=== PATIENT | male | born 1945 | race Caucasian/White ===

== ENCOUNTER → 2019-12-26 18:41 | Outpatient (ROUT) | payer MEDICARE, SELFPAY ==
[2019-12-26 19:16] LABS: BUN Creatinine Ratio 23.1 (6-22); Blood Urea Nitrogen 24 mg/dL (9-20); Calcium 9.7 mg/dL (8.4-10.2); Carbon Dioxide 26 mmol/L (22-32); Chloride 101 mmol/L (98-107); Estimated Glomerular Filt Rate > 60.0 mL/min (>60); Glucose 90 mg/dL (80-110); HEMOLYSIS < 15 (0-50); Potassium 4.8 mmol/L (3.4-5.1); Sodium 135 mmol/L (137-145)
[2019-12-26 19:38] LABS: Add Manual Diff / Slide Review NO; Basophils Absolute Auto 100 /uL (0-100); Basophils Percent Auto 0.8 % (0-2); Eosinophils Absolute Auto 100 /uL (0-450); Eosinophils Percent Auto 1.3 % (2-4); Hematocrit 41.9 % (41-53); Hemoglobin 14.4 g/dL (13.5-17.5); Lymphocytes Absolute Auto 1400 /uL (1100-4500); Lymphocytes Percent Auto 23.3 % (25-40); Mean Corpuscular HGB Conc 34.2 % (30-36); Mean Corpuscular Hemoglobin 33.7 PG (26-34); Mean Corpuscular Volume 98.3 fL (80-100); Monocytes Absolute Auto 700 /uL (0-900); Monocytes Percent Auto 10.8 % (3-14); Neutrophils Absolute Auto 3900 /uL (1500-7000); Neutrophils Percent Auto 63.8 % (50-75); Platelet Count 172 X10^3/uL (150-400); Red Blood Cell Count 4.26 X10^6/uL (4.5-5.9); Red Cell Distribution Width 12.8 % (11.6-14.8); White Blood Cell Count 6.1 X10^3/uL (4.5-11.0)
== END ==
PROVIDERS: Visit Provider Internal Medicine
DX: Z01.818 Encounter for other preprocedural examination (principal)
CPT/HCPCS: 80048; 85025

== ENCOUNTER → 2020-01-17 09:08 | Outpatient (CLI) | payer MEDICARE, SELFPAY ==
[2020-01-19 02:02] LABS: COVID19 Sendout Not Detected (Not Detect)
== END ==
PROVIDERS: PCP Internal Medicine; Visit Provider Student in an Organized Health Care Education/Training Program
DX: Z11.59 Encounter for screening for other viral diseases (principal)
CPT/HCPCS: 87635

== ENCOUNTER 2020-01-20 06:13 | Day surgery (SDC) | payer MEDICARE, SELFPAY ==
[2020-01-13 11:48] VITALS: BMI 24.5
[2020-01-20] VITALS (18 sets, daily range): BP systolic 101–150; BP diastolic 46–91; PULSE 63–84; RESP 12–23; TEMP 36.1–37.5; O2SAT 91–98; BMI 23.7
--- NOTE | 2020-01-20 | DI.RAD.S_ITS ---
PROCEDURE: XR CERVICAL SPINE 2V OR 3V INDICATIONS: C4-5. C5-6, C6-7 ACDF SERGIO TECHNIQUE: Fluoroscopic images were obtained during an operative procedure and submitted for interpretation following the completion of the procedure. COMPARISON: [facility], MR, MR CERVICAL SPINE WITHOUT CONTRAST, 12/11/2019, 9:01. [facility], CR, XR CERVICAL SPINE 2 OR 3 VIEWS, 09/15/2019, 10:37. FINDINGS: These fluoroscopic images were performed for intraoperative localization. On these images, anteriorly placed fixation devices are seen at C4-C5, C5-C6, and C6-C7. Please correlate with intraoperative findings. IMPRESSION: Normal intraoperative examination. Dictated by: Binh Bella M.D. on 01/20/2020 at 9:20 Approved by: Binh Bella M.D. on 01/20/2020 at 9:22
[2020-01-20] MEDS: LACTATED RINGERS 1,000 ML 42 ML IV ×2 (07:03→09:34)
--- NOTE | 2020-01-20 07:19 | PM.PREOP ---
Pre-operative Note COVID-19 COVID-19 status: Negative Result date/Date tested (Pos, Neg/Pending): 01/17/20 Interval Note History & Physical reviewed/Exam performed by Physician: Yes Changes to H&P: No
--- NOTE | 2020-01-20 07:28 | P.OP_ITS ---
Operative Date/Time/Diagnoses Date of procedure: 01/20/20 Time of procedure: 09:31 Pre-op diagnosis: Cervical stenosis with myelopathy Post-op diagnosis: same Procedure & Clinicians Procedure: C4-5, C5-6, C6-7 ACDF with cages Iliac crest bone graft aspirate Use of microscope Same procedure as scheduled: Yes Indications: [age] year old male with intractable pain from cervical cord compression. They had failed conservative management and requested operative intervention. Risks and benefits of surgery were discussed and appropriate consents were obtained. Surgeon: Jordi Mendez Nurse Assessor: Rosangela Bauman Anesthesia Type: General Operative Notes Findings: None Closure Type: primary Specimen(s): none sent Prosthetic devices, grafts, tissues, transplants, or devices: Jorge SERGIO-C Applied: catheter Estimated Blood Loss (mL): 5 Procedure in detail: Patient was brought to the operating room and intubated on the table. A time-out was performed. Preoperative antibiotics were given. The neck was prepped and draped in the standard sterile fashion. Using a skin fold, we made a 3 cm oblique incision on the left side. We used Bovie to go through the platysma and then did a standard anterolateral blunt dissection down to the precervical fascia. Fascia was nicked and elevated up. A marker was placed and x-ray was taken for localization. We then subperiosteally elevated up the longus colli muscles. Self-retaining retractors were placed. Mereta pins were placed. We then brought in the microscope. A scalpel used to perform an annulotomy. We then used a combination of pituitaries and curettes and Kerrison to perform a complete anterior diskectomy at C6-7. We used the bur to take down the posterior osteophytes. We took down the PLL and used Kerrison to remove any posterior disc material and osteophytes. At the end we could from the nerve hook cephalad caudally and out the foramen and everything was opened. A small stab incision was made over the left anterior iliac crest. A Jamshidi needle was advanced into the pelvis and 2 mL of bone marrow was aspirated. We then used the trials. We then packed a 14 x 17 x 6 mm SERGIO-C cage with Primagen bone graft and the iliac crest harvest. The cage was placed under fluoroscopic guidance. We then placed our two locking plates. This completed the ACDF at C6-7. We then moved our retractors up to C5-6. Again a complete diskectomy was performed including taking down the posterior osteophytes and the PLL. We removed any posterior disc material. At the end of this the decompression was verified with a nerve hook and everything was open. We then used the trials. We then packed a 14 x 17 x 6 mm SERGIO-C cage with Primagen bone graft and the iliac crest harvest. The cage was placed under fluoroscopic guidance. We then placed our two locking plates. This completed the ACDF at C5-6. We then moved our retractors up to C4-5. Again a complete diskectomy was performed taking down the posterior osteophytes and the PLL. We removed the posterior disc material. At the end of this the decompression was verified with a nerve hook and everything was open. We then used the trials. We then packed another 14 x 17 x 6 mm SERGIO-C cage with Primagen bone graft and the iliac crest harvest. The cage was placed under fluoroscopic guidance. We then placed our two locking plates. This completed the ACDF at C4-5. The self-retaining retractors and Mereta pins were removed and final x-rays taken. The wound was irrigated. There was no bleeding. The carotid was beating nicely. The platysma was closed. The superficial was closed. The skin was closed. A sterile dressing was placed. They were then extubated and brought to recovery room with no complications. Complications: none Post-operative Condition: stable Disposition: PACU Plan for aftercare: Inpatient. Up with PT. Soft collar for comfort.
[2020-01-20] MEDS: CEFAZOLIN 2 GM/100 ML FROZ.PIGGY IV ×3 (07:40→23:38)
[2020-01-20] MEDS: SODIUM CHLORIDE 0.9% 1,000 ML, GENTAMICIN 80 MG IRR (08:13)
[2020-01-20] MEDS: THROMBIN (RECOMBINANT) 5,000 UNIT VIAL 5000 UNIT TOP (08:13)
[2020-01-20] MEDS: BUPIVACAINE 0.25% W/ EPI 30 ML VIAL 60 ML INJ (08:15)
--- NOTE | 2020-01-20 08:18 | SUR.OPER ---
Supine on padded OR bed, head on gel doughnut, shoulder roll placed at top of bilateral scapula, arms padded and tucked at side, legs uncrossed, safety belt at thigh, tape over blanket over lower legs .
[2020-01-20] MEDS: HYDROMORPHONE 2 MG INJ IV ×6 (10:05→10:35)
[2020-01-20] MEDS: OXYCODONE IR 5 MG TABLET PO (10:31)
[2020-01-20] MEDS: hydrOXYzine 50 MG/ML INJ 25 MG IM (10:55)
--- NOTE | 2020-01-20 11:01 | SUR.PHASEI ---
Report called to Donna.
--- NOTE | 2020-01-20 11:27 | SUR.PHASEI ---
Patient transferred to the floor with belongings bag. Report given to BRIANNA Thompson. VS stable. Dressings CDI. Drain patent. IV saline locked.
[2020-01-20] MEDS: CELECOXIB 200 MG CAPSULE 400 MG PO (12:23)
[2020-01-20] MEDS: OXYCODONE/ACETAMINOPHEN 5/325 TABLET 2 TAB PO (12:23)
[2020-01-20] MEDS: LACTATED RINGERS 1,000 ML 125 ML IV ×2 (12:25→19:18)
[2020-01-20] MEDS: HYDROMORPHONE 0.5 MG INJ IV (13:10)
[2020-01-20] MEDS: BENZOCAINE/MENTHOL 1 LOZ PKT 1 EACH PO ×2 (13:24→23:38)
--- NOTE | 2020-01-20 13:30 | PT.IIE ---
Current Diagnoses Disease of spinal cord, unspecified (01/20/20) Spinal stenosis, cervical region (01/20/20) Strain of muscle, fascia and tendon at neck level, subsequent encounter (01/20/20) Surgery Performed Operation Date: 01/20/20 07:45 Actual Procedures p C4-7 anterior cervical discectomy & fusion w/bone graft - Jordi Mendez MD Surgical History (Last Updated 01/13/20 @ 12:08 by Akiko Diehl, RN) History of vasectomy (Acute) Hx of tonsillectomy (Acute) Medical History (Last Updated 01/13/20 @ 12:08 by Akiko Diehl RN) Asthma (Acute) Diabetes (Acute) Easy bruisability (Acute) Enlarged prostate (Acute) HLD (hyperlipidemia) (Acute) Melanoma (Acute ~2016) Numbness and tingling (Acute) Spinal stenosis, cervical region (Acute) Physical Therapy Inpatient Evaluation/Re-Eval M1 PT/OT-IP Prior Functional Status Start: 01/20/20 15:02 Freq: NEEDED Status: Active Protocol: Document 01/20/20 13:30 AB (Rec: 01/20/20 15:11 AB [email or web address]) Medical Review Prior Functional Status Medical History Reviewed Yes Communication able to make needs known Mobility and Gait pt stated that he is independent with all mobilities and ambulation without AD Social History Household Members spouse Living Arrangements House Number of Floors (Floors) One Floor Number of Stairs To Enter/Railing? no steps to enter Home Environment Standard Height Toilet,Walk in Shower Home Equipment Straight Cane Employment Status Retired M2 PT-IP Current Condition Start: 01/20/20 15:02 Freq: NEEDED Status: Active Protocol: Document 01/20/20 13:30 AB (Rec: 01/20/20 15:11 AB [email or web address]) Physical Therapy Current Condition Current Condition Evaluation Date 01/20/20 Treatment Diagnosis s/p C4-5,5-6,6-7 ACDF; difficulty in walking Onset Date 01/20/20 Precautions Cervical Spine Precautions Soft Collar for Comfort,No Heavy Lifting,Log Roll M3 PT-IP Subjective Start: 01/20/20 15:02 Freq: NEEDED Status: Active Protocol: Document 01/20/20 13:30 AB (Rec: 01/20/20 15:11 AB [email or web address]) Subjective Physical Therapy Visit Type Type Initial Evaluation Visit Start Time 13:30 Visit Stop Time 13:58 Total Visit Minutes 28 Number of DRUM FILLER Visits 0 Physical Therapy Visit Comments Patient Comments pt is agreeable to do PT Therapy Pain Assessment Pain When Pain Assessed At Rest Pain Present Pain Present Pain Reported Location posterior neck/shoulders Intensity 5 Scale Used Numeric (0 - 10) Pain Management Techniques Apply Cold,Modification of Treatment,Re-positioning, Timing of Activity with Medications M4 PT-IP Mobility and Gait Start: 01/20/20 15:02 Freq: NEEDED Status: Active Protocol: Document 01/20/20 13:30 AB (Rec: 01/20/20 15:11 AB [email or web address]) PT-Bed Mobility Assessment Rolling Type of Rolling Log Rolling Level of Assist Standby Assistance Supine to Sit Supine to Sit Standby Assistance Sit to Supine Sit to Supine Standby Assistance Scooting Scooting to Edge of Bed Standby Assistance PT-Transfer Assessment Sit to and From Stand Sit to and from Stand Standby Assistance,Contact Guard Assistance,1 Person Assistance Equipment Transfer Assistive Device None,Gait Belt Orthotic/Prosthetic Devices or Brace: Yes Transfers Transfer Destination Bed,Chair Transfer Technique ambulated without AD Transfer Ability Level of Assist Standby Assistance Comments Mobility Comments pt sitting on chair and spouse in room. completed sit to stand from chair SBA to CGA and ambulated in room without AD SBA. pt ambulated towards the sink and educated pt and spouse on cervical collar management. pt ambulated to the bed and completed log roll supine<>sit SBA. pt wanted to sit up on chair again and ambulated witout AD SBA. positioned pt on chair. call light and table placed within reach. Gait Assessment Gait Gait Assistance Required: Standby Assistance Distance (Feet) 30 Able to Maintain Weight Bearing Status Yes During Gait Assistive Devices Assistive Device None,Gait Belt Orthotic/Prosthetic Devices or Brace: Yes Factors Limiting Gait Function Factors Limiting Gait Function Decreased Activity Tolerance, Decreased Strength,Limited Range of Motion,Pain PT-Balance Assessment Sitting Balance and Reactions Static Sitting Balance Ability Normal Dynamic Sitting Balance Ability Normal Standing Balance and Reactions Static Standing Balance Ability Good Dynamic Standing Balance Ability Good Device Used without AD M5 PT-IP Objective Assessments Start: 01/20/20 15:02 Freq: NEEDED Status: Active Protocol: Document 01/20/20 13:30 AB (Rec: 01/20/20 15:11 AB [id number]) Orientation Orientation/Cognition Level of Alertness Alert Orientation Name,Place,Situation Language Function Ability No Deficits Noted Safety Awareness Understands Safety Issues Memory Description No Deficits Noted Gross Range of Motion Lower Extremity ROM Assessment Within Functional Limits Strength Lower Extremity Strength Assessment Within Functional Limits Coordination Assessment Gross Coordination Gross Coordination WNL Muscle Tone Muscle Tone WNL Yes M6 PT-IP Treatment Start: 01/20/20 15:02 Freq: NEEDED Status: Active Protocol: Document 01/20/20 13:30 AB (Rec: 01/20/20 15:11 [email or web address]) Physical Therapy Treatment Education Education Provided Precautions,Weight Bearing Status,Post-Op Packet,Safety M7 PT-IP Assessment and Plan Start: 01/20/20 15:02 Freq: NEEDED Status: Active Protocol: Document 01/20/20 13:30 AB (Rec: 01/20/20 15:11 [email or web address]) PT Summary Assessment and Plan Potential Rehabilitation Potential Good Status of Condition at Evaluation Stable Summary Impairments Pain,ROM,Strength,Balance, Sensation,Bed Mobility, Transfers,Gait,Activity Tolerance Assessment Summary pt s/p ACDF and just had surgery this morning. pt requiring SBA to CGA with mobility and plans to go home with spouse to assist him. will continue to assess progress. Goals Bed Mobility Goal Independent Transfer Goal Independent Gait Goal Independent Gait Distance 200 Days to Meet Goals 3 Frequency of Treatment Frequency Of Treatment Twice a Day Treatment Plan Physical Therapy Treatment Plan Bed Mobility Training,Transfer Training,Gait Training, Therapeutic Exercise,Balance Retraining,Post Op Education, Discharge Planning,Hot or Cold Pack,Neuromuscular Re-ed, Coordination Retraining,Manual Therapy Recommendations To Nursing Amount of Assist Needed 1 Person Assist Discharge Recommendations PT Discharge Recommendations Home with Assistance Transportation Needs at Discharge Private Vehicle
--- NOTE | 2020-01-20 15:10 | PC.NURSE ---
Moderate to severe cramping, stiff pain to posterior neck, administered PO Percocet and IV dilaudid, reassessed and pain improved with 4/10 pain; Gauze/tegaderm drsg to anterior neck c/d/i; Albino serous drainage; lozenge for sore throat, patient tolerating general diet for lunch; IV fluids infusing, VSS; IS 2000 X 5 breaths every hour; pt instructed regarding fall risks/hazards, call light within reach
--- NOTE | 2020-01-20 15:10 | SLP.IPNOTE ---
Patient underwent ACDF this AM. Order for swallow evaluation received. Per ACDF protocol, patient will be evaluated for swallowing/voice impairments tomorrow.
--- NOTE | 2020-01-20 15:13 | OT.IP.EVAL ---
Current Diagnoses Disease of spinal cord, unspecified (01/20/20) Spinal stenosis, cervical region (01/20/20) Strain of muscle, fascia and tendon at neck level, subsequent encounter (01/20/20) Surgery Performed Operation Date: 01/20/20 07:45 Actual Procedures p C4-7 anterior cervical discectomy & fusion w/bone graft - Jordi Mendez MD Past Medical History (Last Updated 01/13/20 @ 12:08 by Akiko Diehl, RN) Asthma (Acute) Diabetes (Acute) Easy bruisability (Acute) Enlarged prostate (Acute) HLD (hyperlipidemia) (Acute) Melanoma (Acute ~2016) Numbness and tingling (Acute) Spinal stenosis, cervical region (Acute) Surgical History (Last Updated 01/13/20 @ 12:08 by Akiko Diehl, BRIANNA) History of vasectomy (Acute) Hx of tonsillectomy (Acute) Occupational Therapy Inpatient Evaluation/Re-Eval M1 PT/OT-IP Prior Functional Status Start: 01/20/20 15:24 Freq: NEEDED Status: Active Protocol: Document 01/20/20 14:45 [facility] (Rec: 01/20/20 15:43 [facility] [id number]) Medical Review Prior Functional Status Medical History Reviewed Yes Communication able to make needs known Mobility and Gait pt stated that he is independent with all mobilities and ambulation without AD Activities of Daily Living and IADL's Pt states completely independent with all ADl and IADl needs and mainly just needing more time to complete due to neck pain. Social History Household Members spouse Living Arrangements House Number of Floors (Floors) One Floor Number of Stairs To Enter/Railing? no steps to enter Home Environment Standard Height Toilet,Walk in Shower, grab bar in shower Home Equipment Straight Cane Employment Status Retired M2 OT-IP Current Condition Start: 01/20/20 15:24 Freq: Status: Active Protocol: Document 01/20/20 14:45 [facility] (Rec: 01/20/20 15:43 [facility] [id number]) Occupational Therapy Current Condition Current Condition Evaluation Date 01/20/20 Treatment Diagnosis cervical myelopathy s/p C4-5, C5-6, C6-7 Diagnosis Onset Date 01/20/20 Post Operative Precautions Cervical Spine Precautions Soft Collar for Comfort,No Heavy Lifting,Log Roll M3 OT- IP Subjective and Pain Start: 01/20/20 15:24 Freq: Status: Active Protocol: Document 01/20/20 14:45 [facility] (Rec: 01/20/20 15:43 [facility] [id number]) OT- Subjective Occupational Therapy Visit Type Type Initial Evaluation Visit Start Time 14:45 Visit Stop Time 15:13 Total Visit Minutes 28 Occupational Therapy Visit Comments Patient Comments Pt agreeable to work with OT for OT eval. Patient/Caregiver Goals To go home. OT Pain Assessment Pain When Pain Assessed At Rest Pain Present Pain Present Pain Reported Location posterior neck/shoulders Intensity 4 M4 OT- IP ADL's Start: 01/20/20 15:24 Freq: Status: Active Protocol: Document 01/20/20 14:45 [facility] (Rec: 01/20/20 15:43 [facility] [id number]) OT [id number] Comments OT Self-Feeding Comments Not at meal time, able to go over information regarding swallowing info after ACDF, pt and able to states good understanding. OT ADL-Grooming General Evaluation Grooming Ability Independent OT ADL-Oral Care General Eval Oral Care Ability Standby Assistance Comments Oral Care Comments VC to lean at his hips to spit into the sink to best follow his cervical precautions. OT ADL-Dressing General Eval Lower Body Dressing Ability Standby Assistance Comments OT Dressing Comments Pt able to comfortably cross his legs over to jonel/doff his socks and states good understanding to just sit for LB dressing needs. OT ADL-Toileting Comments OT Toileting Comments Pt not having to go at this time. Pt able to stimulate wiping and able to do so with good follow through of cervical precautions. OT ADL-Bathing Comments OT Bathing Comments Pt states to shower tomorrow. Spoke to pt and his regrading set-up of shower may benefit from a HHSP and shower chair for home. M5 OT- IP IADL's Start: 01/20/20 15:24 Freq: Status: Active Protocol: Document 01/20/20 14:45 [facility] (Rec: 01/20/20 15:43 [facility] [id number]) OT-Instrumental Activities of Daily Living Medication Management Medication Management Comments Prior pt did on his own and pt aware to provide supervision as pt may be groggy from pain medications. Money Management Money Management Comments Prior pt did on his own and pt aware to provide supervision as pt may be groggy from pain medications. Meal Preparation Meal Preparation Comments to assist. Shear Grinder Operator Shear Grinder Operator Comments to assist. M6 OT- IP Functional Cognition Start: 01/20/20 15:24 Freq: Status: Active Protocol: Document 01/20/20 14:45 [facility] (Rec: 01/20/20 15:43 [facility] [id number]) Cognitive Factors Limiting Selfcare Function Cognitive Ability Level of Alertness Alert Patient Orientation Name,Age,Birthday,Month,Date, Year,Day of Week,Place, Situation Attention Span Ability Capable of Focused Attention, Capable of Sustained Attention Ability to Follow Commands Able to Follow Multi-Step Commands Safety Awareness Decreased Ability to Apply Precautions,Underestimates Need for Assistance Cognitive Comments Cognitive Assessment Comments Pt able to follow commands for cervical precautions for ADl and functional mobility. Pt needing cues to incorporate cervical precautions for log rolling. OT- Vision and Hearing OT- Hearing Assessment OT- Hearing Assessment WFL OT- Vision Assessment Visual Acuity Glasses All The Time M7 OT- IP Mobility and Balance Start: 01/20/20 15:24 Freq: Status: Active Protocol: Document 01/20/20 14:45 [facility] (Rec: 01/20/20 15:43 [facility] [id number]) OT- Bed Mobility Assessment Sit to Supine Sit to Supine Assist Contact Guard Assistance OT-Transfer Assessment Sit to and From Stand Sit to and from Stand Standby Assistance Transfers Transfer Ability Standby Assistance,Contact Guard Assistance Technique Transfer Destination Bed,Chair Transfer Technique Stand Step Pivot Devices Transfer Assistive Devices Gait Belt,Front Wheeled Walker Comments Mobility Comments VC to keep his trunk in side lying before rolling back onto his back. OT- Gait Assessment Comments Gait Ability Comments CGA to close SBA with no device. OT- Balance Assessment Sitting Balance and Reactions Static Sitting Balance Ability Normal Dynamic Sitting Balance Ability Normal Standing Balance and Reactions Static Standing Balance Ability Good M8 OT- IP Objective Assessments Start: 01/20/20 15:24 Freq: Status: Active Protocol: Document 01/20/20 14:45 [facility] (Rec: 01/20/20 15:43 [facility] [id number]) OT Gross Range of Motion Upper Extremity Range of Motion Assessment Within Functional Limits OT-Muscle Tone Assessment Muscle Tone WNL Yes M9 OT- IP Assessment and Plan Start: 01/20/20 15:24 Freq: Status: Active Protocol: Document 01/20/20 14:45 [facility] (Rec: 01/20/20 15:43 [facility] [id number]) OT Summary Assessment and Plan Potential Rehabilitation Potential Excellent Analytic Complexity at Evaluation Low Summary OT Impairments Pain,Balance,Functional Cognition,Functional Mobility, Grooming,Dressing,Toileting, Bathing Progress Towards Goals Progressing Toward Goals Assessment Summary Pt low complexity and main barriers are pain and remembering to incorporate cervical precautions for ADL and functional mobility needs. Pt looking to go home tomorrow with his when medically stable. Goals Dressing Goal Independent Toileting Goal Independent Bathing Goal Independent Toilet Transfer Goal Independent Shower Transfer Goal Independent Patient/Caregiver Education Goal Demonstrate Post-Op Precautions,Caregiver Independent Assisting Patient Days to Meet Goals 1 Frequency of Treatment Frequency Of Treatment Once a Day Treatment Plan OT Treatment Plan ADL Training,Functional Cognition Training,Functional Mobility,Patient/Family Education,Discharge Planning Discharge Recommendations OT Discharge Recommendations Home with Assistance Home Equipment Needs shower chair?, HHSP Transportation Needs at Discharge Private Vehicle
--- NOTE | 2020-01-20 17:18 | PC.NURSE ---
Addendum entered by Cristina Melo R.N. 01/20/20 22:10: Pt watching TV, med x 2 for discomfort this evening w/good relief. Soft collar in place dsg CDI w/enzo drain patent. Small dsg on left hip CDI. Pt voided QS. Stable post op course. Call light w/in reach, bed alarm on for pt safety. Continue w/plan of care. Original Note: Pt resting at intervals. Denies discomfort Lungs clear, SpO2 97% RA Dsg to left hip & anterior neck CDI. Enzo drain intact/patent. IVF LR @ 125cc/hr infusing into LFA via pump w/o incidence. Stable post op course. Call light w/in reach, bed alarm on for pt safety.
[2020-01-20] MEDS: OXYCODONE/ACETAMINOPHEN 5/325 TABLET 1 TAB PO (18:35)
[2020-01-20] MEDS: lisinopriL 5 MG TABLET PO (21:08)
[2020-01-20] MEDS: CELECOXIB 200 MG CAPSULE PO (21:08)
[2020-01-20] MEDS: DOCUSATE 100 MG CAPSULE PO (21:09)
[2020-01-20] MEDS: MONTELUKAST 10 MG TABLET PO (21:09)
[2020-01-20] MEDS: GABAPENTIN 300 MG CAPSULE PO (21:09)
[2020-01-20] MEDS: ATORVASTATIN 20 MG TABLET 10 MG PO (21:11)
[2020-01-20] MEDS: SENNOSIDES 8.6 MG TABLET 17.2 MG PO (21:11)
[2020-01-21] VITALS: BP 100/57; PULSE 84; RESP 18; TEMP 36.7; O2SAT 94
[2020-01-21] MEDS: OXYCODONE/ACETAMINOPHEN 5/325 TABLET 2 TAB PO (03:58)
[2020-01-21 04:00] VITALS: BP 115/56; PULSE 76; RESP 18; TEMP 37; O2SAT 95
--- NOTE | 2020-01-21 07:50 | ST.IPSCREEN ---
Patient screened per ACDF protocol. Patient reports mild discomfort when swallowing, but no choking or coughing. Patient observed to eat breakfast sandwich and drink coffee without difficulty. Provided verbal and written education regarding changes to voice and swallowing. Patient verbalized understanding. D/c from
[2020-01-21] MEDS: CELECOXIB 200 MG CAPSULE PO (07:52)
[2020-01-21] MEDS: DOCUSATE 100 MG CAPSULE PO (07:52)
--- NOTE | 2020-01-21 07:52 | PM.PNPO.1 ---
Subjective Subjective Date Patient Seen: 01/21/20 Time Patient Seen: 07:52 Interval history: He is doing very well. Minimal pain. Arms feel fine. Swallowing well. Exam Vital Signs (past 8 hours): - 01/21/20 00:00 01/21/20 04:00 Temperature 98.1 F 98.6 F Pulse Rate 84 76 Respiratory Rate 18 18 Blood Pressure 100/57 L 115/56 L Pulse Oximetry 94 95 Oxygen Delivery Method Room Air Oxygen Flow Rate 0 Const Orientation: alert and oriented x3 Back/Spine/Pelvis Other: Drain /10. CDI. 5/5 motor both upper extremities. Assessment & Plan Post-op Postoperative Procedures: Procedures Operation Date: 01/20/20 07:45 Actual Procedures Side Surgeon p C4-7 anterior cervical discectomy & fusion w/bone graft Jordi Mendez MD he is doing great. Mobilize this morning with PT then discharge home. Removed drain. Quality VTE Deep Vein Thrombosis/Pulmonary Embolism Present on Admission: No
[2020-01-21 08:25] VITALS: BP 97/58; PULSE 74; RESP 16; TEMP 36.7; O2SAT 94
--- NOTE | 2020-01-21 09:31 | PT.IPTN ---
Current Diagnoses Disease of spinal cord, unspecified (01/20/20) Spinal stenosis, cervical region (01/20/20) Strain of muscle, fascia and tendon at neck level, subsequent encounter (01/20/20) Surgery Performed Operation Date: 01/20/20 07:45 Actual Procedures p C4-7 anterior cervical discectomy & fusion w/bone graft - Jordi Mendez MD Physical Therapy Treatment Note M2 PT-IP Current Condition Start: 01/20/20 15:02 Freq: NEEDED Status: Discharge Protocol: Document 01/20/20 13:30 AB (Rec: 01/20/20 15:11 AB [id number]) Physical Therapy Current Condition Current Condition Evaluation Date 01/20/20 Treatment Diagnosis s/p C4-5,5-6,6-7 ACDF; difficulty in walking Onset Date 01/20/20 Precautions Cervical Spine Precautions Soft Collar for Comfort,No Heavy Lifting,Log Roll M3 PT-IP Subjective Start: 01/20/20 15:02 Freq: NEEDED Status: Discharge Protocol: Document 01/21/20 09:10 SP (Rec: 01/21/20 17:43 SP [email or web address]) Subjective Physical Therapy Visit Type Type Treatment Note Visit Start Time 09:10 Visit Stop Time 09:31 Total Visit Minutes 21 Notes attended tx, completed caregiver training. Number of DISTRICT MANAGER [employer]IMARY C[employer] SALES Visits 1 Physical Therapy Visit Comments Patient Comments Pt is agreeable to working with therapy. Therapy Pain Assessment Pain Present Pain Present Pain Reported Location posterior neck/shoulders Intensity 4 Scale Used 0/10 at rest, 4/10 during mobility Pain Management Techniques Re-positioning,Timing of Activity with Medications M4 PT-IP Mobility and Gait Start: 01/20/20 15:02 Freq: NEEDED Status: Discharge Protocol: Document 01/21/20 09:10 SP (Rec: 01/21/20 17:43 SP [email or web address]) PT-Bed Mobility Assessment Rolling Type of Rolling Log Rolling Level of Assist Standby Assistance Supine to Sit Supine to Sit Standby Assistance Sit to Supine Sit to Supine Standby Assistance Scooting Scooting to Edge of Bed Standby Assistance PT-Transfer Assessment Sit to and From Stand Sit to and from Stand Standby Assistance,1 Person Assistance Equipment Transfer Assistive Device None,Gait Belt Orthotic/Prosthetic Devices or Brace: Yes Transfers Transfer Destination Bed,Chair Transfer Technique ambulated with no AD Transfer Ability Level of Assist Standby Assistance,Contact Guard Assistance Comments Mobility Comments Pt was seated in chair when arrived. present, donned gait belt for safety, provided CGA when needed throughout tx . Sit> stand SBA no AD from chair, SPT chair> bed SBA, sitting<> supine SBA with Min cuing x2 by DISTRICT MA[employer]GER [employer] SALES then follow through from for no twisting and proper log roll form with good carry over. Pt ambulate further distance into hallway CGA no AD, cross step deviation when turning R out of door with self recovery, provided CGA. Educated to patient slow pacing and awareness of COG over MANAV for safety fall prevention with improvement rest of ambulation approx 272 ft ( 2 laps around nursing station), included marching short distance, no LOB stable. Pt was sitting in chair with call light and all needs in reach with in room when left. [employer] SAL[employer] discussed will give nursing staff progress update and from therapy stand point is ok to return home withwife assist when medically ready. Recommending CG- SBA for safety with balance at this time and both patient and in agreement. Gait Assessment Gait Gait Assistance Required: Standby Assistance Distance (Feet) 272 Able to Maintain Weight Bearing Status Yes During Gait Assistive Devices Assistive Device None,Gait Belt Orthotic/Prosthetic Devices or Brace: Yes Factors Limiting Gait Function Factors Limiting Gait Function Decreased Activity Tolerance, Decreased Strength,Limited Range of Motion,Pain,Poor Balance,Poor Safety Awareness Comments Gait Comments see mobility comments Stair Climbing Assessment Comments Stair Climbing Comments does not have any stair, did not assess. PT-Balance Assessment Sitting Balance and Reactions Static Sitting Balance Ability Normal Dynamic Sitting Balance Ability Normal Standing Balance and Reactions Static Standing Balance Ability Good Dynamic Standing Balance Ability Fair Device Used without AD Comments Other Balance Tests/Deviations/Treatment Marching during gait, CGA wt : shift devations no LOB. M5 PT-IP Objective Assessments Start: 01/20/20 15:02 Freq: NEEDED Status: Discharge Protocol: Document 01/20/20 13:30 AB (Rec: 01/20/20 15:11 AB [email or web address]) Orientation Orientation/Cognition Level of Alertness Alert Orientation Name,Place,Situation Language Function Ability No Deficits Noted Safety Awareness Understands Safety Issues Memory Description No Deficits Noted Gross Range of Motion Lower Extremity ROM Assessment Within Functional Limits Strength Lower Extremity Strength Assessment Within Functional Limits Coordination Assessment Gross Coordination Gross Coordination WNL Muscle Tone Muscle Tone WNL Yes M6 PT-IP Treatment Start: 01/20/20 15:02 Freq: NEEDED Status: Discharge Protocol: Document 01/21/20 09:10 SP (Rec: 01/21/20 17:43 SP [email or web address]) Physical Therapy Treatment Education Education Provided Precautions,Weight Bearing Status,Post-Op Packet,Safety M7 PT-IP Assessment and Plan Start: 01/20/20 15:02 Freq: NEEDED Status: Discharge Protocol: Document 01/21/20 09:10 SP (Rec: 01/21/20 17:43 SP [email or web address]) PT Summary Assessment and Plan Potential Rehabilitation Potential Good Status of Condition at Evaluation Stable Summary Impairments Pain,ROM,Strength,Balance, Sensation,Bed Mobility, Transfers,Gait,Activity Tolerance Assessment Summary pt requiring SBA to CGA with mobility requires cuing by for proper log roll to prevent twisting,increase gait endurance 272 ft no AD, cross step deviation but self recovery CGA by exiting room, improved balance during gait during assessment marching, stable. Pt is ok to return home with to assist him when medically ready. Goals Bed Mobility Goal Independent Transfer Goal Independent Gait Goal Independent Gait Distance 200 Days to Meet Goals 3 Frequency of Treatment Frequency Of Treatment Twice a Day Treatment Plan Physical Therapy Treatment Plan Bed Mobility Training,Transfer Training,Gait Training, Therapeutic Exercise,Balance Retraining,Post Op Education, Discharge Planning,Hot or Cold Pack,Neuromuscular Re-ed, Coordination Retraining,Manual Therapy Recommendations To Nursing Amount of Assist Needed 1 Person Assist Discharge Recommendations PT Discharge Recommendations Home with Assistance,Home with 24/7 Assist Transportation Needs at Discharge Private Vehicle
--- NOTE | 2020-01-21 14:09 | CM.DPC ---
DCP/Assessment: Reviewed chart. Patient is a 74yr old male admitted [facility] for elective [facility] surgery performed on 01-19-[address] Mendez. PCP listed is Dr. Hurley. Primary payor is 1)[employer]. REPORT CHECKER attempted to meet with patient to discuss any d/c planning needs. Spoke with RN/Astrid whom reports patient was doing great this AM and wanted to leave. Therefore, d/c order obtained. P: Home today. MONICA Nazario Discharge Planning/Care Management Advanced directive, confirm from FAMILY Start: 01/20/20 13:22 Freq: Q24H Status: Discharge Protocol: Document 01/20/20 13:22 JDG (Rec: 01/20/20 13:38 JDG [id number]) Advance Directive, confirm on record Time 13:38 Person contacted spouse Copy received No CM Discharge Assessment Start: 01/21/20 13:53 Freq: Status: Active Protocol: Document 01/21/20 13:54 KJS (Rec: 01/21/20 13:58 KJS [id number]) Discharge Planning Assessment Assigned Human Development Professor MONICA Nazario Contact Information Nancy Mendiola (spouse) ph# [phone] Advance Directives? Yes Advance Directives on File No History Provided By Medical Record Prior Living Arrangements House Household Members spouse Independent with ADL's Yes Is patient alert and oriented? Yes Caregiver for Another No Barriers to Discharge No Discharge Plan Home Transportation Arrangement Family to provide transport. Referrals Initiated None needed Review Status In Process Next Review Type Continued Stay Review Document 01/21/20 14:09 KJS (Rec: 01/21/20 14:09 KJS [id number]) Discharge Planning Assessment Assigned Human Development Professor MONICA Nazario Contact Information Nancy Mendiola (spouse) ph# Advance Directives? Yes Advance Directives on File No History Provided By Medical Record Prior Living Arrangements House Household Members spouse Independent with ADL's Yes Is patient alert and oriented? Yes Caregiver for Another No Barriers to Discharge No Discharge Plan Home Transportation Arrangement Family to provide transport. Referrals Initiated None needed Review Status In Process Next Review Type Continued Stay Review Pre-Anesthesia Assessment Start: 01/13/20 11:48 Freq: Status: Discharge Protocol: Document 01/13/20 11:48 CAB (Rec: 01/13/20 12:21 CAB [id number]) Pre-Anesthesia Assessment Patient Information Reviewed Via Phone Assessment Assessment Completed With Patient Diagnostic Results BMP/CMP,CBC,EKG Comment Labs @ [facility], outside EKG scanned , COVID screen @ [facility] 01/17/20 Primary Care Provider Rhys Hurley Medical Clearance Received Yes Seen Specialist in Last 12 Months Yes Specialist Seen Hay Rake Operator,Orthopedist Comment PCP pre-op/clearance 12/26/19 scanned to record Primary Language [place] Islander Multiple Resaw Operator Required No Height 167.64 cm Weight 68.946 kg Body Mass Index (BMI) 24.5 Hearing Ability Normal Visual Assist Glasses Dentition Type Teeth, Natural Present Barriers to Learning None Hx Anesthesia Reactions No Hx Family Anesthesia Reaction No Hx Malignant Hyperthermia No Hx Blood Transfusions No Anesthesia Review Requested No alcohol intake current alcohol intake frequency 0-2 drinks per day Smoking Status Never smoker Substance Use Type does not use Pain Present Pain Reported Musculoskeletal Symptoms Back Pain,Limited Range of Motion,Neck Pain,Numbness, Radiating Pain into Limb, Tingling History of Falling (Recent or History of No ) Patient is completely paralyzed or No completely immobile Mental Status Oriented to own ability Is patient on oxygen? No Does patient have FRIED/SOB No Hx Sleep Apnea No Currently Taking a Beta Alessandro No Can You Climb a Flight of Stairs Without Yes SOB Hx Chest Pain No Hx SOB No Hx Syncope or Dizziness No Anti-Coagulant Therapy No Has a Machine Tool Designer No Cardiac Testing No Hx Pacemaker/ICD No Pacemaker Rep Required? No Cardiac Clearance Received Not Applicable Diet Type At Home Regular dysphagia No Bladder Pattern Frequency Urinary Catheter Present No Hx Urinary Self Catheterization No Diabetes Yes: Pt checks blood sugar every morning HgbA1C 6.2 Hx Drug Resistant Organism No Presence of External or Internal Medical No Devices Have you had any close contact with No someone diagnosed with COVID-19? Marital Status Lives With spouse Prior Living Arrangements House Number of Floors (Floors) One Floor Support System Spouse Does the Patient Have Assistance After Yes Surgery Patient Discharge Plan Description Return Home Comment Pt advised overnight length of stay per surgeon Feels Safe in Current Environment Yes Been Physically Hurt or Threatened By a No Person in Current Environment Do you have thoughts of harming yourself None or others? Are you currently considering suicide? No Do you have a plan to hurt yourself or No Plan others? Do You Have Any Spiritual Beliefs That No May Affect Your HC Choices? Do You Have Any Cultural Practices That No May Affect Your HC Choices? Comment Zoroastrian Who Can We Speak to About Patient's Care only Identifying Code for Release of Patient [place] Information Health Care Proxy/Next of Kin Marisabel () Health Care Proxy Emergency Contact Name Marisabel () Emergency Contact Advance Directives? Yes Advance Directives on File No Requested Patient Bring Advanced Yes Directives DOS Power of Concrete Layer No PAC Instructions Medications to take/avoid, Nasal antibiotic,No ETOH/ petroleum product on skin DOS, NPO,Post-op transportation,Pre -surgical wash,Sensory aids, Sturdy shoes/comfortable clothes,Do not bring valuables and remove jewelry
== END 2020-01-21 10:09 | disposition home or self-care (01) ==
LOC: OR 06:18 → AC 08:42
PROVIDERS: PCP Internal Medicine; Referring Provider Internal Medicine; Visit Provider Orthopaedic Surgery
PROC: (CPT 22551; principal; 2020-01-20 07:45)
DX: M48.02 Spinal stenosis, cervical region (principal); S16.1XXD Strain of muscle, fascia and tendon at neck level, subsequent encounter; E11.9 Type 2 diabetes mellitus without complications; J45.909 Unspecified asthma, uncomplicated; G95.89 Other specified diseases of spinal cord
CPT/HCPCS: 22551; 22552 ×2; 22853 ×3; 20939; 72040; 76000; 97116; 97161; 97165; 97535; C1776; A9270; J0690; J1100; J1170; J2405; J2704; J3010; J3410

== ENCOUNTER → 2020-08-17 19:01 | Outpatient (ROUT) | payer OTHER, SELFPAY ==
[2020-01-20 13:12] VITALS: BMI 23.7
[2020-08-17 19:31] LABS: Alanine Aminotransferase 65 IU/L (<50); Albumin 4.4 g/dL (3.5-5.0); Albumin Globulin Ratio 1.4 (1.0-2.8); Alkaline Phosphatase 81 U/L (38-126); Aspartate Aminotransferase 58 IU/L (17-59); Bilirubin Total 0.6 mg/dL (0.2-1.3); Bilirubin Unconjugated 0.4 mg/dL (0.0-1.1); Cholesterol 162 mg/dL (140-199); Globulin 3.2 g/dL (1.7-4.1); HDL Cholesterol 90 mg/dL (40-60); HEMOLYSIS 35 (0-50); LDL Cholesterol Calculated 42 mg/dL (<100); Total Protein 7.6 g/dL (6.3-8.2); Triglycerides 149 mg/dL (35-150)
== END ==
PROVIDERS: PCP Internal Medicine; Visit Provider Internal Medicine
DX: E78.2 Mixed hyperlipidemia (principal); N40.1 Benign prostatic hyperplasia with lower urinary tract symptoms; R94.5 Abnormal results of liver function studies
CPT/HCPCS: 80061; 80076; 84153

== ENCOUNTER → 2023-12-07 08:56 | Outpatient (CLI) | payer MEDICARE, SELFPAY ==
[2020-01-20 13:12] VITALS: BMI 23.7
--- NOTE | 2023-12-07 09:42 | EKG_ITS ---
[address] [address] Test Date: 2023-12-07 Pat Name: Matteo Mendiola Department: [facility] Room: Gender: Male Court Specialist: CHARLOTTE : 1945 Requested By: Order Number: [id number] Reading MD: Easton Santos Measurements Intervals [place] Rate: 57 P: 60 NE: 262 QRS: -6 QRSD: 84 T: 10 QT: 402 QTc: 391 Interpretive Statements Sinus bradycardia with 1st degree AV block Electronically Signed On 12-07-2023 18:02:18 PDT by Easton Santos
[2023-12-07 10:30] LABS: Hemoglobin A1C% w Est Avg Glu 6.2 % (4.0-6.0)
[2023-12-07 10:32] LABS: Alanine Aminotransferase 53 IU/L (<50); Albumin 4.3 g/dL (3.5-5.0); Albumin Globulin Ratio 1.4 (1.0-2.8); Alkaline Phosphatase 102 U/L (38-126); Aspartate Aminotransferase 55 IU/L (17-59); BUN Creatinine Ratio 17.2 (6-22); Bilirubin Total 1.1 mg/dL (0.2-1.3); Blood Urea Nitrogen 16 mg/dL (9-20); Carbon Dioxide 25 mmol/L (22-32); Chloride 103 mmol/L (98-107); Cholesterol 157 mg/dL (140-199); Estimated Glomerular Filt Rate > 60 mL/min (>60); Glucose 129 mg/dL (80-110); HEMOLYSIS < 15 (0-50); Potassium 4.7 mmol/L (3.4-5.1); Sodium 136 mmol/L (137-145); Total Protein 7.3 g/dL (6.3-8.2); Triglycerides 57 mg/dL (35-150)
[2023-12-07 10:41] LABS: HDL Cholesterol 86 mg/dL (40-60); LDL Cholesterol Calculated 60 mg/dL (<100)
[2023-12-07 10:51] LABS: Add Manual Diff / Slide Review NO; Basophils Absolute Auto 100 /uL (0-100); Basophils Percent Auto 1.1 % (0-2); Eosinophils Absolute Auto 300 /uL (0-450); Eosinophils Percent Auto 4.9 % (2-4); Hematocrit 43.4 % (41-53); Lymphocytes Absolute Auto 1900 /uL (1100-4500); Lymphocytes Percent Auto 32.3 % (25-40); Mean Corpuscular HGB Conc 34.5 % (30-36); Mean Corpuscular Hemoglobin 34.4 PG (26-34); Mean Corpuscular Volume 99.7 fL (80-100); Monocytes Absolute Auto 800 /uL (0-900); Monocytes Percent Auto 14.5 % (3-14); Neutrophils Absolute Auto 2700 /uL (1500-7000); Neutrophils Percent Auto 47.2 % (50-75); Platelet Count 192 X10^3/uL (150-400); Red Blood Cell Count 4.36 X10^6/uL (4.5-5.9); Red Cell Distribution Width 13.2 % (11.6-14.8); White Blood Cell Count 5.8 X10^3/uL (4.5-11.0)
[2023-12-07 13:02] LABS: Creatinine Urine Random 97.83 mg/dL
[2023-12-07 13:13] LABS: Microalbumin Urine Random < 0.6 mg/dL (0-1.6)
== END ==
PROVIDERS: PCP Family Medicine; Referring Provider Family Medicine; Visit Provider Family Medicine
DX: R01.1 Cardiac murmur, unspecified (principal); E11.9 Type 2 diabetes mellitus without complications; E78.2 Mixed hyperlipidemia; E78.5 Hyperlipidemia, unspecified; Z13.9 Encounter for screening, unspecified
CPT/HCPCS: 36415; 80053; 80061; 82043; 82570; 83036; 85025; 93005

== ENCOUNTER → 2024-02-28 08:11 | Outpatient (CLI) | payer MEDICARE, SELFPAY ==
[2020-01-20 13:12] VITALS: BMI 23.7
--- NOTE | 2024-02-28 08:12 | DI.ECHO.S_ITS ---
[place] +---------+ Hospital : : [id number] : : [place] : : [id number] : : Phone: [phone] Echocardiogram Report + + :Name: ANNETTA MURCIA Study Date: 02/28/2024 Height: 67 in : :[facility] ReadingLocation: Weight: 144 lb : : Gender: Male BSA: 1.8 m2 : :: 1945 Age: 78 yrs BP: 110/67 mmHg: :Reason For Study: SYSTOLIC MURMUR : :Ordering Physician: : :EDWIN COLUNGA Performed By: Edwin Mccray : :Referring: EDWIN COLUNGA : + + Interpretation Summary The left ventricle is normal in size. The ejection fraction is estimated to be 50-55%. The right ventricle is mildly dilated. The right ventricular systolic function is normal. There is prolapse of the posterior mitral valve leaflet(s). There is moderate mitral valve prolapse. There is moderate to severe mitral regurgitation. There is mild aortic regurgitation. There is mild tricuspid regurgitation. The right ventricular systolic pressure is estimated to be at least 37 mmHg based on an estimated right atrial pressure of 3 mm Hg. The ascending aorta is mildly enlarged. Consider cardiology evaluation. Procedure: A two-dimensional transthoracic echocardiogram with color flow and Doppler was performed. The study quality was technically good. There is no prior echocardiogram noted for this patient. The patient was in normal sinus rhythm during the exam. Left Ventricle: The left ventricle is normal in size. There is normal left ventricular wall thickness. There is no ventricular septal defect visualized. There is no thrombus. The ejection fraction is estimated to be 50-55%. There are no focal wall motion abnormalities. MV E/A: 1.1 Med Peak E' Edward: 7.1 cm/sec E/E' med: 15.0. Right Ventricle: The right ventricle is mildly dilated. The right ventricular systolic function is normal. Atria: The left atrium is moderately dilated. The right atrium is mildly dilated. There is no Doppler evidence for an atrial septal defect. Mitral Valve: The mitral valve leaflets appear mildly thickened, but open well. There is moderate mitral valve prolapse. There is prolapse of the posterior mitral valve leaflet(s). There is moderate to severe mitral regurgitation. Aortic Valve: The aortic valve is trileaflet. The aortic valve opens well. There is mild aortic regurgitation. Tricuspid Valve: The tricuspid valve is normal. There is mild tricuspid regurgitation. The right ventricular systolic pressure is estimated to be at least 37 mmHg based on an estimated right atrial pressure of 3 mm Hg. Pulmonic Valve: The pulmonic valve leaflets are thin and pliable; valve motion is normal. There is mild pulmonic regurgitation. Great Vessels: The aortic root is normal size. The ascending aorta is mildly enlarged. The pulmonary artery is normal size. The IVC is of normal diameter and collapses greater than 50% with a sniff. This suggests a low right atrial pressure of 3 mm Hg. Pericardium/ Pleura There is no pericardial effusion. There is no pleural effusion. MMode/2D Measurements & Calculations LVIDd: 5.1 cm LVOT diam: 2.0 cm LVIDs: 3.8 cm Ao root diam: 3.3 cm FS: 25.6 % asc Aorta Diam: 3.8 cm EPSS: 0.77 cm IVSd: 0.93 cm LVPWd: 0.85 cm LV astorga. diameter/BSA (cm/m^2): 2.9 LV sys. diameter/BSA (cm/m^2): 2.2 LA A2 area: 22.6 cm2 RA long axis: 4.9 cm LA A4 area: 24.3 cm2 RA area: 16.5 cm2 LA length (vol): 6.2 cm RA vol: 47.9 ml LA vol: 75.4 ml RA : 27.2 ml/m2 LA vol index: 42.9 ml/m2 IVC diam: 1.5 cm RVD1 (basal): 4.5 cm RVD2 (mid): 3.6 cm TAPSE: 2.7 cm Doppler Measurements & Calculations Ao V2 max: 132.1 cm/sec LVOT Max Edward: 94.6 cm/sec Ao V2 mean: 85.9 cm/sec LV V1 max P.6 mmHg Ao max P.0 mmHg LV V1 VTI: 19.0 cm Ao mean P.4 mmHg AMANDA(I,D): 2.5 cm2 Ao V2 VTI: 25.5 cm AMANDA(V,D): 2.4 cm2 sev ratio: 0.74 AMANDA indexed to BSA (cm^2/m^2): 1.4 AI P1/2t: 572.4 msec AI dec slope: 189.5 cm/sec2 MV E max edward: 106.2 cm/sec TR max edward: 291.3 cm/sec MV A max edward: 100.9 cm/sec TR max P.9 mmHg MV E/A: 1.1 PA V2 max: 67.3 cm/sec Med Peak E' Edward: 7.1 cm/sec PA V2 mean: 50.7 cm/sec E/E' med: 15.0 PA mean P.1 mmHg Lat Peak E' Edward: 6.0 cm/sec PA pr(Accel): 27.6 mmHg E/E' lat: 17.7 E/e' average: 16.4 MV dec time: 0.22 sec MR ERO: 0.30 cm2 MR PISA: 5.2 cm2 SV(LVOT): 62.6 ml MR flow rate: 187.2 cm3/sec MR PISA radius: 0.91 cm Reading Physician:03:18 PM
== END ==
PROVIDERS: PCP Family Medicine; Referring Provider Family Medicine; Visit Provider Family Medicine
DX: R01.1 Cardiac murmur, unspecified (principal); I08.3 Combined rheumatic disorders of mitral, aortic and tricuspid valves; I77.89 Other specified disorders of arteries and arterioles
CPT/HCPCS: 93306

== ENCOUNTER → 2024-04-29 08:08 | Outpatient (CLI) | payer MEDICARE, SELFPAY ==
[2020-01-20 13:12] VITALS: BMI 23.7
--- NOTE | 2024-04-29 08:09 | DI.MRI.S_ITS ---
PROCEDURE: MR CERVICAL SPINE WO CON INDICATIONS: cervical stenosis, neck pain TECHNIQUE: Noncontrast sagittal T1 spin echo and T2 fast spin echo, sagittal STIR, foraminal oblique sagittal T2 fast spin echo, and axial gradient echo or T2 fast spin echo through the cervical spine. COMPARISON: [facility], MR, MR CERVICAL SPINE WITHOUT CONTRAST, 12/11/2019, 9:01. FINDINGS: Image quality: Excellent Anterior fusion instrumentation with interbody spacer at C4-C6. Mild retrolisthesis C2 on C3. Mild anterolisthesis C3 on C4. Vertebral body height of the cervical spine are well maintained. Mild fibrovascular end plate change at C3-4. Multilevel disc bulge and disc desiccation. Cord signal: Normal. Right neural foraminal stenosis: Mild at C3-4, moderate at C4-5, C5-6, C6-7. Left neural from stenosis: Mild at C2-3, moderate at C4-5, C5-6, C6-7. Axial levels: C2-3: Posterior disc osteophyte complex. Mild central canal stenosis. C3-4: Posterior disc osteophyte complex, ligamentum flap per trophy. Severe central canal stenosis. C4-5: Posterior disc osteophyte complex. Moderate right, mild left facet arthropathy. No central canal stenosis. C5-6: Bilateral uncovertebral and facet arthropathy. No central canal stenosis. C6-7: Bilateral uncovertebral and facet arthropathy. No central canal stenosis. C7-T1: Mild bilateral facet arthropathy. No central canal stenosis. Other soft tissue findings: Suggestion of left mastoid effusion, partially visualized. Small T2 hyperintense lesion in the subcutaneous fat of the posterior neck, at the level of T1-2, nonspecific. IMPRESSION: 1. Interval anterior fusion instrumentation with interbody spacer at C4-6. 2. Multilevel degenerative changes of the cervical spine, most pronounced at C3-4, where there is progressed severe central canal stenosis and mild right neural foraminal stenosis. Dictated by: Tayler Pineda M.D. on 04/29/2024 at 9:49 Approved by: Tayler Pineda M.D. on 04/29/2024 at 9:59
== END ==
PROVIDERS: PCP Family Medicine; Referring Provider Family Medicine; Visit Provider Family Medicine
DX: M48.02 Spinal stenosis, cervical region (principal); M47.812 Spondylosis without myelopathy or radiculopathy, cervical region; M54.2 Cervicalgia; Z98.1 Arthrodesis status
CPT/HCPCS: 72141

== ENCOUNTER → 2024-10-23 07:45 | Outpatient (CLI) | payer MEDICARE, SELFPAY ==
[2020-01-20 13:12] VITALS: BMI 23.7
[2024-10-23 08:31] LABS: Hemoglobin A1C% w Est Avg Glu 6.3 % (4.0-6.0)
[2024-10-23 08:54] LABS: Cholesterol 179 mg/dL (140-199); HDL Cholesterol 82 mg/dL (40-60); Triglycerides 88 mg/dL (35-150)
== END ==
PROVIDERS: PCP Family Medicine; Referring Provider Family Medicine; Visit Provider Family Medicine
DX: E11.9 Type 2 diabetes mellitus without complications (principal); Z12.5 Encounter for screening for malignant neoplasm of prostate; E78.5 Hyperlipidemia, unspecified
CPT/HCPCS: 36415; 80061; 83036; G0103